=== PATIENT | female | born 1960 | race Caucasian/White ===

== ENCOUNTER 2016-05-16 19:29 | Emergency (ER) | payer SELFPAY ==
[~2016-05-16] VITALS: Ht 157.5 cm; Wt 75.0 kg
[~2016-05-16 19:29] MED LIST: CELEXA10 MG; FLEXERIL 1010 MG/TAB PO; NORCO 325 MG-7.1 TAB PO; PHENERGAN 25 TA25 MG PO; SINGULAIR 110 MG/TAB PO; WELLBUTRIN 100100 MG; ZOFRAN 4MG T4 MG/TAB PO
[2016-05-16 19:39] VITALS: TEMP 97.2
[2016-05-16] MEDS ORDERED: PROVENTIL0.09 MG/A1 IH (19:47)
[2016-05-16] MEDS ORDERED: WELLBUTRIN SR150 M1 PO (19:48)
[2016-05-16] MEDS ORDERED: PRIL40 PO (19:48)
[2016-05-16] MEDS ORDERED: CELEXA 20MG20 MG/TAB PO (19:48)
[2016-05-16 20:12] LABS: BASO % 0.2 % (0.0-2.0); EOS # 0.2 (0.0-0.7); EOS % 2.5 % (0-4.0); GRAN # 6.7 (1.4-6.5); GRAN % 69.9 % (42.2-75.2); LYMPH # 1.9 (1.2-3.4); MEAN CELL VOLUME 89 fl (80.0-100.0); MEAN CORPUSCULAR HGB CONC 33 g/dl (33.0-37.0); MEAN PLATELET VOLUME 8.9 fl (7.4-10.4); MONO # 0.7 (0.1-0.6); MONO % 7.1 % (1.7-9.3); PLATELET COUNT 249 K/mm3 (130-400); RED BLOOD COUNT 4.03 M/mm3 (4.10-5.30); REDCELL DISTRIBUTION WIDTH-CV 12.6 % (11.5-14.5); WHITE BLOOD COUNT 9.6 K/mm3 (4.8-10.8)
[2016-05-16 20:13] LABS: HEMATOCRIT 35.7 % (37.0-47.0); HEMOGLOBIN 11.9 g/dl (12.5-16.0); MEAN CORPUSCULAR HEMOGLOBIN 30 pg (27.0-31.0)
[2016-05-16 20:19] LABS: ADJUSTED CALCIUM 8.8 mg/dL (8.4-10.2); ALBUMIN 3.9 gm/dL (3.5-5.0); BILIRUBIN,TOTAL 0.6 mg/dL (0.0-1.0); C-REACTIVE PROTEIN 2.8 mg/dL (0.0-0.9); CALCIUM 8.7 mg/dL (8.4-10.2); CREATININE, serum 0.75 mg/dL (0.52-1.25); POTASSIUM 3.2 mmol/L (3.4-5.0); TOTAL PROTEIN 7.1 gm/dL (6.4-8.2)
[2016-05-16] MEDS ORDERED: CARAFATE 1GM1 G PO (21:54)
[2016-05-16 22:15] VITALS: BP 151/86; PULSE 89
== END 2016-05-16 22:16 | disposition home or self-care (01) ==
LOC: COL.ER 19:29
PROVIDERS: Emergency Medicine
DX: R10.13 Epigastric pain (principal); K21.9 Gastro-esophageal reflux disease without esophagitis; F17.210 Nicotine dependence, cigarettes, uncomplicated
CPT/HCPCS: C9113; J1885; J2060; J2405; J7030; Q9967